=== PATIENT | male | born 1945 | race Caucasian/White ===

== ENCOUNTER 2016-10-06 09:54 | Day surgery (SDC) | payer OTHER, MEDICAID ==
[~2016-10-06] VITALS: Ht 172.7 cm; Wt 80.7 kg
[~2016-10-06 09:54] MED LIST: ASPIRIN 81M81 MG/TA2 PO; ASPIRIN E.C. 8181 MG PO; BENTYL 20MG20 MG/TAB PO; CALCIUM 600/VIT1 TAB PO; CALCIUM CITRATE1 TA5 PO; CELEXA PO; CELEXA40 MG PO; CITALOPRAM40 MG PO; CYCLOBENZAPRINE10 MG PO; DICYCLOMINE20 MG PO; FIBER CHOICE1 CTB PO; FLEXERIL 1010 MG/TAB PO; FOSAMAX 70MG TA70 MG PO; LEVOXYL0.025 MG PO; MIRTAZAPINE45 MG PO; ONE-A-DAY MEN'S1 TAB PO; PLAVIX 75MG TAB75 MG PO; PRIL40 PO; PROTONIX 40MG T40 MG PO; REMERON15 MG PO; REMERON45 MG PO; VITAMIN B-650 MG PO; VITAMIN D1000 IU PO; ZYRTEC 10MG10 MG PO
[2016-10-06 10:45] VITALS: BP 174/79; PULSE 83; TEMP 97.8
[2016-10-06] MEDS ORDERED: ZYRTEC 10MG10 MG PO (10:47)
[2016-10-06] MEDS ORDERED: SYNTHROID 0.0.025 MG PO (10:48)
[2016-10-06] MEDS ORDERED: ASPIRIN 81M81 MG/TA2 PO (10:48)
[2016-10-06] MEDS ORDERED: PLAVIX 75MG TAB75 MG PO (10:49)
[2016-10-06] MEDS ORDERED: CELEXA40 MG PO (10:52)
[2016-10-06] MEDS ORDERED: REMERON45 MG PO (10:53)
[2016-10-06] MEDS ORDERED: PROTONIX 40MG T40 MG PO (10:53)
[2016-10-06] MEDS ORDERED: PROSCAR 5MG5 MG PO (10:54)
[2016-10-06] MEDS ORDERED: REQUIP XL6 MG PO (10:54)
[2016-10-06] MEDS ORDERED: BENTYL 20MG20 MG/TAB PO (10:55)
[2016-10-06] MEDS ORDERED: MEVACOR10 MG PO (10:55)
[2016-10-06] MEDS ORDERED: ATARAX50 MG PO (10:56)
[2016-10-06] MEDS ORDERED: FLOMAX 0.40.4 MG/CAP PO (10:56)
[2016-10-06] MEDS ORDERED: CENTRUM SILVER1 TA2 PO (10:56)
[2016-10-06 12:45] VITALS: BP 153/75; PULSE 73; TEMP 98.1
[2016-10-06 13:00] VITALS: BP 154/72; PULSE 74
[2016-10-06 13:45] VITALS: BP 147/72; PULSE 73
== END 2016-10-06 13:20 | disposition home or self-care (01) ==
LOC: SDCO 09:54
DX: K21.0 Gastro-esophageal reflux disease with esophagitis (principal); K22.70 Barrett's esophagus without dysplasia; K22.2 Esophageal obstruction; J44.9 Chronic obstructive pulmonary disease, unspecified; F32.9 Major depressive disorder, single episode, unspecified; K58.9 Irritable bowel syndrome, unspecified; Z87.01 Personal history of pneumonia (recurrent); Z79.899 Other long term (current) drug therapy; Z79.82 Long term (current) use of aspirin; Z79.02 Long term (current) use of antithrombotics/antiplatelets
CPT/HCPCS: C1726; J2250; J3010; J7030

== ENCOUNTER 2019-01-31 00:24 | Inpatient (IN) | payer MEDICARE, MEDICAID ==
[~2019-01-31] VITALS: Ht 172.7 cm; Wt 73.1 kg
[~2019-01-31 00:24] MED LIST changes: +ATARAX50 MG PO; +CENTRUM SILVER1 TA2 PO; +FLOMAX 0.40.4 MG/CAP PO; +MEVACOR10 MG PO; +PROSCAR 5MG5 MG PO; +REQUIP2 MG PO; +SYNTHROID 0.0.025 MG PO
--- NOTE | 2019-01-31 01:00 | NUR ---
Patient has been admitted to the floor via EMS. He is alert and oriented. He is drowsy from medications given. Denies nausea. He is rating his pain at 5-6 on a 0-10 scale in his right hip. Explained to patient the plan for today. Watkins was placed at [place], urine output is yellow and clear. Patient does not like the watkins catheter. Oriented patient to room. Notified A Chelly JUNG that patient has arrived to the floor. No other changes at this time. Call light within reach.
[2019-01-31 01:07] VITALS: BP 157/66; PULSE 87; TEMP 98.8
[2019-01-31] MEDS ORDERED: CLARITIN 1010 MG/TAB PO (01:41)
[2019-01-31] MEDS ORDERED: LIPITOR 40MG TA40 MG PO (01:41)
[2019-01-31] MEDS ORDERED: FERROUS SU325 MG/TAB PO (01:42)
[2019-01-31] MEDS ORDERED: RT SPIRIVA18 MCG IH (01:43)
[2019-01-31] MEDS ORDERED: FLONASEALLERGY NS (01:45)
[2019-01-31] MEDS ORDERED: RYTARY1 CE3 PO (01:48)
[2019-01-31] MEDS ORDERED: ATHLETE'S FOOT1% TP (01:49)
[2019-01-31] MEDS ORDERED: FLOXIN OTIC DROP5 ML OT (01:52)
[2019-01-31] MEDS ORDERED: MIRALAX PA17 GM/Dose PO (01:53)
[2019-01-31 06:10] LABS: BASO % 0.2 % (0.0-2.0); EOS # 0.2 (0.0-0.7); EOS % 1.5 % (0-4.0); GRAN # 12.4 (1.4-6.5); GRAN % 86.9 % (42.2-75.2); HEMATOCRIT 44.1 % (42.0-52.0); HEMOGLOBIN 15.3 g/dl (13.5-18.0); LYMPH # 0.6 (1.2-3.4); LYMPH % 4.4 % (20.0-51.0); MEAN CELL VOLUME 93 fl (80.0-100.0); MEAN CORPUSCULAR HEMOGLOBIN 32 pg (27.0-31.0); MEAN CORPUSCULAR HGB CONC 35 g/dl (33.0-37.0); MONO # 0.9 (0.1-0.6); MONO % 6.4 % (1.7-9.3); PLATELET COUNT 246 K/mm3 (130-400); RED BLOOD COUNT 4.73 M/mm3 (4.20-5.60); REDCELL DISTRIBUTION WIDTH-CV 13.7 % (11.5-14.5)
[2019-01-31 06:18] LABS: PROTHROMBIN TIME 11.5 SECONDS (9.7-12.8)
[2019-01-31 06:26] LABS: ALBUMIN 3.8 gm/dL (3.5-5.0); BILIRUBIN,TOTAL 0.9 mg/dL (0.0-1.0); CALCIUM 8.5 mg/dL (8.4-10.2); CREATININE, serum 0.99 (0.66-1.25); MAGNESIUM 2.2 mg/dL (1.6-2.3); POTASSIUM 4.2 mmol/L (3.4-5.0); TOTAL PROTEIN 7.2 gm/dL (6.4-8.2)
--- NOTE | 2019-01-31 06:30 | NUR ---
Patient slept for a couple hours than woke up around 0300, norco and morphine given for pain. He is rating pain at 8 on a 0-10 scale. Gave morphine at this time to work before the norco starts working. Explained this to patient. Patient verbalized understanding. Explained how often he can have the pain medications. Home medication list completed. Discussed medications with patient. He took all his day/evening medications yesterday but did not take HS medications. Dr Castro notified of consult. Explained patient can not eat or drink until all tests finished. SCD's to BLE, NASIMA hose to LLE. No other changes at this time. Beatrice CAZARES is here to see patient from Ortho. Call light within reach. Bed alarm on just in case he forgets and tries to get up.
[2019-01-31 06:33] LABS: PRE ALBUMIN 21.5 mg/dL (17.6-36.0)
--- NOTE | 2019-01-31 06:40 | NUR ---
bedside shift report received from MILLY Yates
--- NOTE | 2019-01-31 07:29 | NUR ---
appears to be dozing but when awakens c/o pain to right hip, medicated with hydrocodone 7.5mg 1 tab, full assessment completed, see interventions for further info,
--- NOTE | 2019-01-31 09:00 | NUR ---
awake now resting in bed looking at his phone, assisted the JOB DEVELOPMENT SPECIALIST with am hygiene and repositioned up in bed, tolerated well,
[2019-01-31 09:10] VITALS: BP 131/58; PULSE 78; TEMP 98.6
--- NOTE | 2019-01-31 09:42 | NUR ---
to radiology per bed for CT of head and has now returned, Dr Guerrero in to see and visit with patient
--- NOTE | 2019-01-31 09:53 | NUR ---
hospitalist and care team in to see pateint
--- NOTE | 2019-01-31 11:00 | NUR ---
resting in bed with eyes closed
[2019-01-31 12:13] VITALS: BP 140/59; PULSE 73; TEMP 98.6
--- NOTE | 2019-01-31 13:15 | NUR ---
talked with him and he has not found someone to bring his home meds, will speak with pharmacy, also he understands the doctor of nurse anesthesia wants him to wait to do surgery until after more tests are done, assisted him with ordering lunch
--- NOTE | 2019-01-31 15:30 | NUR ---
family now here to visit, patient visits with them
--- NOTE | 2019-01-31 15:40 | NUR ---
ELO met with the patient and patient's daughter, Uma, to discuss discharge plan. The patient lives alone in [place]. He states that Uma lives in [place]. He reports independence with ADLs prior to hospitalization and has a walker. He states that he receives cleaning services twice a week from the [facility]. He states that a nurse from the [facility] also comes and sets up his meds and will even pick them up for him. The patient's PCP is Dr. Robosn Baeza and he receives his medications from [facility]. He reports no difficulties obtaining his meds. The patient does not have advanced directives in EMR, but states that he does have them completed and at home. He states that his PCP's office should have a copy too. SW contacted his PCP's office and requested a copy. His daughter, Uma, reports that she is his DPOA-HC. The patient's daughter reports that the plan is for the patient to come down to [place] with her and her upon discharge. The patient is to have surgery. PT/OT to work with the patient. ELO to continue to follow to ensure a safe discharge.
--- NOTE | 2019-01-31 16:07 | NUR ---
c/o pain and medicated with hydrocodone 7.5mg 1 tab
--- NOTE | 2019-01-31 16:14 | NUR ---
SW received the patient's DPOA-HC and Living Will, via fax. ELO placed in the patient's chart and provided a copy of both to the patient's daughter.
[2019-01-31 16:28] VITALS: BP 122/54; PULSE 73; TEMP 98.4
--- NOTE | 2019-01-31 16:50 | NUR ---
repositioned over to right side and tolerated well
--- NOTE | 2019-01-31 18:45 | NUR ---
bedside shift report given to MILLY Sweeney
--- NOTE | 2019-01-31 20:00 | NUR ---
Report received. Assumed care for shift mechanic. Assessment complete. VS stable. C/O pain to right hip area rating it 03/15-Morphine given IV per dr order. Repositioned with pillow support with hip alignment. Denies shortness of breath. Noted to have diminished lung bases as well as O2 Sat of 88% on 2L/NC. IS given with instruction on use. O2 Sat up to 94% on 2L/NC. Instruction given to use every hour. Verbalizes understanding. Denies needs at this time. WIll monitor.
[2019-01-31 21:10] VITALS: BP 152/65; PULSE 80; TEMP 98.5
[2019-01-31 23:07] VITALS: BP 148/62; PULSE 76; TEMP 99
--- NOTE | 2019-02-01 00:10 | NUR ---
Repositioned with pillow support to maintain correct alignment. Fresh ice applied. Teaching done on proper positioning of lower extremitites. Verbalizes understanding. Will monitor.
[2019-02-01 03:29] VITALS: BP 122/65; PULSE 77; TEMP 98.8
[2019-02-01 08:03] LABS: BASO % 0.2 % (0.0-2.0); EOS # 0.9 (0.0-0.7); EOS % 8.6 % (0-4.0); GRAN % 76.1 % (42.2-75.2); HEMATOCRIT 43.5 % (42.0-52.0); HEMOGLOBIN 14.6 g/dl (13.5-18.0); LYMPH # 0.8 (1.2-3.4); LYMPH % 7.7 % (20.0-51.0); MEAN CELL VOLUME 97 fl (80.0-100.0); MEAN CORPUSCULAR HEMOGLOBIN 32 pg (27.0-31.0); MEAN CORPUSCULAR HGB CONC 34 g/dl (33.0-37.0); MONO # 0.8 (0.1-0.6); MONO % 7.1 % (1.7-9.3); PLATELET COUNT 227 K/mm3 (130-400)
[2019-02-01 08:24] LABS: ALBUMIN 3.3 gm/dL (3.5-5.0); BILIRUBIN,TOTAL 0.7 mg/dL (0.0-1.0); CALCIUM 8.3 mg/dL (8.4-10.2); CREATININE, serum 0.97 (0.66-1.25); TOTAL PROTEIN 6.6 gm/dL (6.4-8.2)
[2019-02-01 08:33] VITALS: BP 119/45; PULSE 72; TEMP 98.6
[2019-02-01 12:38] VITALS: BP 123/56; PULSE 72; TEMP 99.1
--- NOTE | 2019-02-01 13:30 | NUR ---
Right hip pain improved with prn pain meds and repositioning. Ice pack to hip. Drowsy, alert. RT gave treatment for low O2 sats. Uses incentive spirometer to 1000 ml. Occasional non-productive cough. O2 on per oxymask. Hospitalist notified and chest x-ray ordered.
[2019-02-01 16:02] VITALS: BP 135/78; PULSE 87; TEMP 100.1
[2019-02-01 17:05] VITALS: TEMP 100
--- NOTE | 2019-02-01 18:30 | NUR ---
Low grade fever. Pain improved with prn meds. Drinking protein shake after encouragement from family. IV Lasix given and IV fluids stopped per order.
--- NOTE | 2019-02-01 20:00 | NUR ---
Report received. Assumed care for shift commander. Assessment complete. C/O pain to right hip requesting pain medications. IV pain meds available only as PO have already been taken. IV sit to left wrist noted to not [id number]-[id number] swelling. Dcd at this time-cath intact. #20 placed in right wrist after 2nd attempt. Flushed without difficulty. Morphine given per dr order. Has scooted self down to the end of the bed with not pillow support. Repositioned at this time-teaching complete on proper positioning. Much more comfortable now. Call light within reach. Bed in low position. Alarm on. WIll monitor.
[2019-02-01 20:43] VITALS: BP 130/50; PULSE 92; TEMP 99.5
[2019-02-02] VITALS (7 sets, daily range): BP systolic 119–146; BP diastolic 42–67; PULSE 76–95; TEMP 98.4–99.7
[2019-02-02 05:06] LABS: BASO % 0.2 % (0.0-2.0); EOS % 8.7 % (0-4.0); GRAN # 8.3 (1.4-6.5); GRAN % 74.1 % (42.2-75.2); HEMATOCRIT 41.7 % (42.0-52.0); HEMOGLOBIN 14.1 g/dl (13.5-18.0); LYMPH # 0.8 (1.2-3.4); LYMPH % 7.2 % (20.0-51.0); MEAN CELL VOLUME 95 fl (80.0-100.0); MEAN CORPUSCULAR HEMOGLOBIN 32 pg (27.0-31.0); MEAN CORPUSCULAR HGB CONC 34 g/dl (33.0-37.0); MEAN PLATELET VOLUME 8.7 fl (7.4-10.4); MONO # 1.1 (0.1-0.6); MONO % 9.4 % (1.7-9.3); PLATELET COUNT 210 K/mm3 (130-400); REDCELL DISTRIBUTION WIDTH-CV 13.9 % (11.5-14.5)
[2019-02-02 05:14] LABS: ALBUMIN 3.2 gm/dL (3.5-5.0); CALCIUM 8.2 mg/dL (8.4-10.2); CREATININE, serum 0.98 (0.66-1.25); TOTAL PROTEIN 6.4 gm/dL (6.4-8.2)
--- NOTE | 2019-02-02 09:50 | NUR ---
Medicated with Morphine for c/o right hip pain after repositioning. O2 on per nasal cannula. Took po meds with juice. Refused food.
--- NOTE | 2019-02-02 15:05 | NUR ---
Family request change of DC plan; ELO met with patient and son, and dtr in room. Patient reports that they would like to look for placement in [place] so the patient will be with family and possibly move in with the son. ELO presented patient with choice for and medicare.gov SNF-refferal list. DPOA signed on father's behalf. They chose [address], [facility] Ph: [phone] and . Faxed 2. Family [facility] [place] [address], [place] , Called and left message. No fax- number. Will need to send 02/03 3. [facility] [address] [facility] Phone Called and left message- no fax listed. Will need to send 02/03 awaiting screen from initial fax.
--- NOTE | 2019-02-02 18:00 | NUR ---
Fluids and food encouraged as tolerated. Uses incentive spirometer with instruction. Pain relieved with prn med.
--- NOTE | 2019-02-02 20:00 | NUR ---
Report received. Assumed care for journeyman molder. Assessment complete. VS stable. C/O pain to right hip-rated 7/10, described as sharp stabbing, medicated per dr oakley. Morris cath with clear yellow urine. Repositioned at this time with pillow support. Ice applied. Plan of care discussed. O2 at 5L via humidified nasal cannula. Denies shortness of breathe, N/V. States she is nervous for surgery tomorrow. Call light within reach. Bed in low with alarm on. Will monitor.
[2019-02-03] VITALS (207 sets, daily range): BP systolic 100–169; BP diastolic 45–88; PULSE 62–110; TEMP 98–98.8; O2SAT 92–100
--- NOTE | 2019-02-03 01:50 | NUR ---
Notified by telephone plant power operator of new onset A-Fib. Adamaris Spaulding APRN notified as well as Cardiopulmomary for EKG. ERICH Spaulding to see patient. No new orders at this time. Will continue to monitor.
[2019-02-03 07:13] LABS: BASO % 0.3 % (0.0-2.0); EOS # 0.9 (0.0-0.7); EOS % 8.9 % (0-4.0); GRAN # 7.9 (1.4-6.5); GRAN % 75.4 % (42.2-75.2); HEMATOCRIT 44.6 % (42.0-52.0); LYMPH # 0.7 (1.2-3.4); LYMPH % 6.6 % (20.0-51.0); MEAN CELL VOLUME 97 fl (80.0-100.0); MEAN CORPUSCULAR HEMOGLOBIN 33 pg (27.0-31.0); MEAN CORPUSCULAR HGB CONC 34 g/dl (33.0-37.0); MEAN PLATELET VOLUME 9.1 fl (7.4-10.4); MONO # 0.8 (0.1-0.6); MONO % 7.5 % (1.7-9.3); PLATELET COUNT 258 K/mm3 (130-400); RED BLOOD COUNT 4.61 M/mm3 (4.20-5.60); REDCELL DISTRIBUTION WIDTH-CV 13.9 % (11.5-14.5)
[2019-02-03 07:26] LABS: CALCIUM 8.4 mg/dL (8.4-10.2); CREATININE, serum 1.03 (0.66-1.25); POTASSIUM 3.7 mmol/L (3.4-5.0)
--- NOTE | 2019-02-03 07:40 | NUR ---
REPORT FROM MARTINE ATKINS.
--- NOTE | 2019-02-03 09:09 | NUR ---
PT TO [facility] THIS AM. FAMLIY AT BED SIDE. RT IN ADMINISTERING TX ORDERED. PO PAIN MEDS GIVEN FOR PAIN. PT TOLERATING WELL
--- NOTE | 2019-02-03 09:30 | NUR ---
ELO faxed referral to [facility]. P# f# ELO awaiting response.
--- NOTE | 2019-02-03 09:31 | NUR ---
ELO faxed referral to [facility] in [place]. p# f# ELO awaiting response.
[2019-02-03 12:03] LABS: PROTHROMBIN TIME 12.2 SECONDS (9.7-12.8)
--- NOTE | 2019-02-03 12:52 | NUR ---
IV STARTED TO LFA BY WANDY ATKINS.
--- NOTE | 2019-02-03 13:40 | NUR ---
PT TO HEAD OF HISTORY FOR HEART CATHETERIZATION. CONSENT SIGNED ON CHART.
--- NOTE | 2019-02-03 13:46 | NUR ---
Initial visit; Patient thanked Fence Post Driver for looking in on him and offering spiritual care. Fence Post Driver will change shinto affiliation so that Freeman may receive Holy Communion as he states he is Cheondoism.
--- NOTE | 2019-02-03 14:02 | NUR ---
ALL MEDICATIONS GIVEN VORB WITH MD. SEE MERGE FOR ALL MEDICATION ADMIN TIMES. SEE MERGE FOR ALL RASS ASSESSMENTS DURING AND POST PROCEDURE. RADIAL PULSE +2 IN THE RIGHT WRIST.
--- NOTE | 2019-02-03 15:27 | NUR ---
[facility] in [place] can accept the patient for a skilled stay. They can provide transport. Damaris is the POC . ELO will continue to follow.
--- NOTE | 2019-02-03 15:30 | NUR ---
Patient transported to ICU 7 at this time. Bedside report given to MILLY Thacker. Patient remains restless. Wrist immobilizer in place along with forearm/elbow immobilizer wrapped for stability with YANELY bandage, per MD orders. TR band in place with 20 ml of air in the band per MD orders. Visualized site with RN at bedside. Site remains intact, with old drainage present. Site soft, with no hematoma present at this time. Pulse was palpable, soft and nontender. Patient continues to be restless. This nurse and additional staff from director labor standards present to assist.
--- NOTE | 2019-02-03 15:39 | NUR ---
[facility] Danna Romero p# f#
--- NOTE | 2019-02-03 15:45 | NUR ---
Report received from MILLY Thacker. Pt remains restless/confused since left heart cath procedure. right wrist and elbow immobilizer in place. Rocco bandage around right arm. Right radial TR band in place. small amt drainage from incision site. Bruise present around incision site, area soft, no hematoma present. Radial pulse +1. Pt desat 80s, o2 increased to 10L/ oxymask. ERICH Ocampo with Dr Brody notified of pt status. Will come see pt now.
--- NOTE | 2019-02-03 15:48 | NUR ---
[facility] has accepted FILEMON Swann .
--- NOTE | 2019-02-03 15:55 | NUR ---
ERICH Ocampo with Dr Brody at bedside. Pt remains confused/agitated. Swinging arms around. Trying to pull off divina bandage on right arm. Bilat mitts placed on pt's hands. Attempted to reorient pt several times, unsuccesful. CXR and Ativan IV ordered. Pt remains on 10L/oxymask.
--- NOTE | 2019-02-03 15:59 | NUR ---
Sheldon faxed update to [facility]. ELO will continue to follow.
[2019-02-03 16:20] LABS: ARTERIAL BLD GAS O2 SATURATION 92.9 % (92-100); ARTERIAL BLD GAS TCO2 CT 30.2; ARTERIAL BLOOD GAS BASE EXCESS 3.5 (-2-2); ARTERIAL BLOOD GAS HCO3 28.8 meq/L (22-26); ARTERIAL BLOOD GAS PCO2 46.2 mmHg (35-45); ARTERIAL BLOOD GAS PO2 65.8 mmHg (80-100); ARTERIAL BLOOD GAS pH 7.41 (7.35-7.45)
--- NOTE | 2019-02-03 16:30 | NUR ---
IV lasix given. Pt resting in bed, occasionally restless. Right radial TR band on, small, old drainage noted from incision site. Right radial pulse +1.
--- NOTE | 2019-02-03 16:55 | NUR ---
Pt's dtr and son in law at bedside. Updated on pt status and plan of care r/t TR band on right wrist and pulmonary consult. Pt's dtr verbalized understanding. Pt occasionally restless. Still confused. HOB up at 30 degrees, on 4L/oxymask. Ice pack placed on right hip. Mitts still on hands.
--- NOTE | 2019-02-03 18:39 | NUR ---
Pt placed on Bipap by RT per Dr Corea's orders. Pt resting, opens eyes briefly to stimulation, tries to swing arms at nurse, then falls back asleep. VSS. Right wrist TR band on, dry drainage noted at incision site. NO hematoma present. Bruising still around incison site. Will monitor.
--- NOTE | 2019-02-03 19:20 | NUR ---
Report given to MILLY Rowland.
--- NOTE | 2019-02-03 19:20 | NUR ---
Bedside report received from MILLY Marroquin. Lines and medications reviewed. Transfer of care at this time.
--- NOTE | 2019-02-03 20:00 | NUR ---
Patient awake laying in bed on the BiPAP. Patient continually pulling at mitts and has successfully pulled them off twice. Mitts reapplied. Patient is not following commands or opening his eyes. Whenever he is touched he tries to swing his arm and hit whoever is close. Unable to reorient patient. Assessment complete. He has clear lung sounds with diminished bases with good air exchange. HR and rhythm are regular with normal S1 and S2 heard, patient does become tachycardic into the 110's when agitated. Bowel sounds active x4. Patient is unable to answer questions, unclear if he needs anything at this time. WIll continue to monitor. bed alarm on.
--- NOTE | 2019-02-03 22:15 | NUR ---
Entered patient room after seeing HR in the 140's at the tele desk. Upon entering the patient is asleep but visually you can see him using accessory muscles to breathe. Lung sounds are diminished in all marrufo with minimal air movement. Sarita RT called to come assist. MILLY Joyner assisted with repositioning patient in bed. Lungs are still diminished with poor air exchange, patient is also breathing against the BiPAP when he previously had been breathing with it. Confirmed with Sarita RT that patients lung sounds have changed and use of accessory muscles. 2223 - ERICH Bernabe called and notified of patient change. Orders for stat chest xray and ABG to be drawn. 2226 - Dr Corea notified. Agrees with stat ABG and xray, have Florecita assess the patient. 2228 - ERICH Bernabe arrives to assess. Xray arrives and takes film. Verbal orders for RT to give zopinex treatment. Order for 20mg lasix IV now and d/c duoneb treatments. Florecita updates Dr. Corea. 2238 - Patient's breathing has improved and is breathing with the BiPAP again, no longer using accessory muscles. Lungs still have poor exchange, but slight improvement with breathing treatment. Will continue to monitor closely.
[2019-02-03 22:34] LABS: ARTERIAL BLD GAS O2 SATURATION 97.9 % (92-100); ARTERIAL BLD GAS TCO2 CT 30.3; ARTERIAL BLOOD GAS BASE EXCESS 2.6 (-2-2); ARTERIAL BLOOD GAS HCO3 28.8 meq/L (22-26); ARTERIAL BLOOD GAS pH 7.38 (7.35-7.45)
[2019-02-03 22:37] LABS: ARTERIAL BLOOD GAS PO2 130.6 mmHg (80-100)
[2019-02-04] VITALS (1061 sets, daily range): BP systolic 95–154; BP diastolic 49–84; PULSE 69–110; TEMP 96–98.8; O2SAT 85–100
--- NOTE | 2019-02-04 | NUR ---
Patient remains stable with no further signs of respiratory distress. He is awake at this time and pulling at mitts. Patient still does not follow commands. Vitals obtained and remain stable. Patient is still tachycardic, but improves when he is resting. No further needs at this time. Will continue to monitor.
--- NOTE | 2019-02-04 04:50 | NUR ---
This nurse enters the room at this time due to alarming from the BiPAP machine. Upon entering patient does not look well and is pale, respirations are shallow and not in sync with the BiPAP. Patient's tidal volumes noted to be in the 100's. 0452 - Respiratory therapy called at this time emergently. Charge nurse, MILLY Joyner called as well. 0454 - Both respiratory therapists and the charge nurse arrive. Patient's O2 sats start dropping into the low 80's. Tidal volumes decreasing as low as 22. This nurse and RT Karen sternal rubbing and shaking patient with no response. After a minute of harsh stimulation patient finally coughs and starts taking deeper breaths and opening his eyes. 0502 - All parties remain at bedside. Patient's sats start dropping again into the high 80's. RT Karen begins changing settings on BiPAP. 0515 - Setting now changed to 16/8 with changes to Tidal volume alarms and pressures by MILLY Jones. 0520 - respiratory therapy leaves at this time. MILLY Joyner and this nurse remain at bedside as patient is starting to become more alert and restless. 0530 - Patient continues to be restless and pulling at mitts. Mitts removed and cath site rewrapped. All air from TR band has been removed. Patient begins to settle down after mitts removed. Lab arrives and this nurse assists with draw as patient is combative when moved or touched. after labs drawn patient falls asleep again and vitals remain stable with RR 20, O2 sats 100%, BP 140's systolic, HR 90's. 0536 - ERICH Bernabe called and notified at this time. Patient is back to baseline and is remaining stable. She will come down and see patient 0538 - Dr. Corea called at this time and notified of patient change. Order to call DPOA and get permission for mechanical ventilation.
[2019-02-04 05:42] LABS: HEMATOCRIT 45.8 % (42.0-52.0); HEMOGLOBIN 15.6 g/dl (13.5-18.0); MEAN CELL VOLUME 95 fl (80.0-100.0); MEAN CORPUSCULAR HEMOGLOBIN 32 pg (27.0-31.0); MEAN CORPUSCULAR HGB CONC 34 g/dl (33.0-37.0); MEAN PLATELET VOLUME 8.9 fl (7.4-10.4); PLATELET COUNT 273 K/mm3 (130-400); RED BLOOD COUNT 4.84 M/mm3 (4.20-5.60); REDCELL DISTRIBUTION WIDTH-CV 13.7 % (11.5-14.5)
--- NOTE | 2019-02-04 05:48 | NUR ---
Patient's daughter, Cynthia (DPOA), called and notified of patient change in respiratory status. Spoke with patient about Dr. Corea's recommendation for intubation and mechanical ventilation. Cynthia agrees to give consent for intubation and ventilation. This is confirmed by phone by this nurse and MILLY Joyner. Cynthia has no further questions at this time. Will notify if any changes.
[2019-02-04 05:57] LABS: CALCIUM 8.8 mg/dL (8.4-10.2); CREATININE, serum 1.19 (0.66-1.25); MAGNESIUM 2.6 mg/dL (1.6-2.3)
[2019-02-04 06:19] LABS: BAND 19 % (0-10); LYMPHOCYTE 3 % (20.0-51.0); NEUTROPHILS 78 % (42.0-75.2)
[2019-02-04 06:20] LABS: PLATELET ESTIMATE NORMAL (NORMAL)
--- NOTE | 2019-02-04 06:20 | NUR ---
This nurse and MILLY Joyner prep patient room for patient to be intubated. Suction canisters set up with tubing, Intubation case and rapid sedation kit pulled and ready. Patience, RT at bedside with secondary RT. 0630 - Anesthesia arrives and preps his equipment. 0635 - intubation started at this time. Patient's Vitals are stable - BP 134/84, O2 100%, RR 18, HR 77. Propofol 40mg and Succ 60mg given at this time by anesthesia. 0637 - Patient is bagged and reaching up for the mask. Restraints applied at this time. 0638 - ET tube placed at this time. 8.0 tube, 24 at the gum. 0640 - Intubation complete. Vitals stable - BP 156/81, RR 19, O2 100%, HR 103. Anesthesia leaves at this time. All suction tubing attached and working. Patience, RT and secondary RT at bedside working on ventilator settings. 0643 - Dr. Corea called at this time for sedation and ventilator settings. Orders received for Propofol and Fentanyl, chest xray for placement, Ventilator orders given to Patience, RT. (RR 15, TV 450, Peep 5, FIO2 60%)
--- NOTE | 2019-02-04 06:45 | NUR ---
Nitro drip stopped at this time due to lack of lines and sedation needing to be started. Will have new line started.
--- NOTE | 2019-02-04 07:00 | NUR ---
Bedside report received from MILLY Rowland.
--- NOTE | 2019-02-04 07:18 | NUR ---
Bedside report given to MILLY May.
--- NOTE | 2019-02-04 07:37 | NUR ---
Cynthia, daughter and DPOA, called and notified that patient has been intubated. He is currently stable with all vitals WNL. Dr. Corea will see the patient when he arrives, but intubation happened without incident. He is sedated and resting comfortably. No further questions at this time. Will continue to notify if any changes. Cynthia says that they are on their was to the hospital.
--- NOTE | 2019-02-04 07:55 | NUR ---
AIVS here to place picc line.
--- NOTE | 2019-02-04 08:00 | NUR ---
Patient repositioned, right leg noted to be externally rotated.
--- NOTE | 2019-02-04 08:10 | NUR ---
TR band removed, band-aid placed over site.
--- NOTE | 2019-02-04 08:15 | NUR ---
Assessment complete, patient intubated, AM care complete, patient appears resting comfortably at this time.
[2019-02-04 10:01] LABS: ARTERIAL BLD GAS O2 SATURATION 98.5 % (92-100); ARTERIAL BLD GAS TCO2 CT 27.8; ARTERIAL BLOOD GAS HCO3 26.6 meq/L (22-26); ARTERIAL BLOOD GAS PCO2 41.4 mmHg (35-45); ARTERIAL BLOOD GAS pH 7.43 (7.35-7.45)
[2019-02-04 10:03] LABS: ARTERIAL BLOOD GAS PO2 150.9 mmHg (80-100)
--- NOTE | 2019-02-04 10:15 | NUR ---
Dr. Guerrero called for update, may given Lovenox today, hold in AM for potential surgery.
--- NOTE | 2019-02-04 11:20 | NUR ---
SW attended clincal rounds. Patient's family was present. Patient was intubated this morning and Doctor reports that patient will likely need to stay intubated and in the ICU after surgery. Patient will possibly have surgery tomorrow. Patient has been [facility] by two [facility] in [place] ([facility] and [facility] SW will continue to follow.
--- NOTE | 2019-02-04 16:27 | NUR ---
Patient repositioned for comfort.
--- NOTE | 2019-02-04 17:40 | NUR ---
FIO2 DECREASED TO 40% PER DR CH POST ABG. RATE REDUCED FROM [address].
--- NOTE | 2019-02-04 18:59 | NUR ---
Bedside report given to MILLY Johnson, all lines,gtts and tubes verified at this time.
--- NOTE | 2019-02-04 19:37 | NUR ---
RECEIVED REPORT FROM MILLY MUÑIZ.
[2019-02-05] VITALS (885 sets, daily range): BP systolic 93–157; BP diastolic 50–76; PULSE 49–80; TEMP 97.1–98; O2SAT 77–100
[2019-02-05 05:46] LABS: HEMATOCRIT 43.2 % (42.0-52.0); HEMOGLOBIN 14.6 g/dl (13.5-18.0); MEAN CELL VOLUME 95 fl (80.0-100.0); MEAN CORPUSCULAR HEMOGLOBIN 32 pg (27.0-31.0); MEAN CORPUSCULAR HGB CONC 34 g/dl (33.0-37.0); PLATELET COUNT 295 K/mm3 (130-400); RED BLOOD COUNT 4.54 M/mm3 (4.20-5.60); REDCELL DISTRIBUTION WIDTH-CV 13.7 % (11.5-14.5)
--- NOTE | 2019-02-05 05:56 | NUR ---
DID NOT PERFORM AT THIS TIME. PATIENT IS ALREADY STARTING TO WAKE UP AND REACHING FOR TUBES AND LINES. WILL CONTINUE TO MONITOR PATIENT.
[2019-02-05 06:04] LABS: CALCIUM 8.8 mg/dL (8.4-10.2); MAGNESIUM 3.2 mg/dL (1.6-2.3); PHOSPHOROUS 4.1 mg/dL (2.5-4.5); POTASSIUM 4.2 mmol/L (3.4-5.0)
[2019-02-05 06:13] LABS: BAND 19 % (0-10); LYMPHOCYTE 4 % (20.0-51.0); NEUTROPHILS 77 % (42.0-75.2); PLATELET ESTIMATE NORMAL (NORMAL)
--- NOTE | 2019-02-05 07:02 | NUR ---
gave report to gopal lopez.
--- NOTE | 2019-02-05 07:03 | NUR ---
Bedside report received from MILLY Johnson.
--- NOTE | 2019-02-05 07:40 | NUR ---
Assessment complete, patient remains intubated, AM care complete at this time.
[2019-02-05 08:29] LABS: ARTERIAL BLD GAS O2 SATURATION 94.1 % (92-100); ARTERIAL BLD GAS TCO2 CT 29.4; ARTERIAL BLOOD GAS BASE EXCESS 3.9 (-2-2); ARTERIAL BLOOD GAS HCO3 28.1 meq/L (22-26); ARTERIAL BLOOD GAS PCO2 40.9 mmHg (35-45); ARTERIAL BLOOD GAS pH 7.46 (7.35-7.45)
--- NOTE | 2019-02-05 11:17 | NUR ---
SW met with patient's daughter and son in law. They inquired if SW has spoken [facility] [place] about transportation costs. SW reported she will contact Danna from [facility]. SW attempted to contact Danna and left a message.
--- NOTE | 2019-02-05 11:42 | NUR ---
First visit from the environmental services lead. No needs right now.
[2019-02-05 16:21] LABS: MUCOUS Present /lpf; PH 5 (5-8); SQUAMOUS EPITHELIAL 0-2 /hpf; URINE APPEARANCE Hazy; URINE BACTERIA None Seen /hpf; URINE BILIRUBIN Negative (NEGATIVE); URINE BLOOD 3+ (NEGATIVE); URINE CALCIUM OXALATE CRYSTAL Present /hpf; URINE COLOR Yellow; URINE GLUCOSE Negative (NEGATIVE); URINE KETONE Negative (NEGATIVE); URINE LEUKOCYTE ESTERASE Negative (NEGATIVE); URINE NITRATE Negative (NEGATIVE); URINE PROTEIN(semi-quant) Negative (NEGATIVE); URINE RBC 20-50 /hpf; URINE UROBILINOGEN Negative (NEGATIVE)
[2019-02-05 16:31] LABS: COLLECTION METHOD CLEAN CATCH
--- NOTE | 2019-02-05 19:02 | NUR ---
Bedside report given to MILLY Rowland, all lines, tubes and gtts verified at this time.
--- NOTE | 2019-02-05 19:05 | NUR ---
Bedside report received from MILLY May. All lines and medications viewed. Transfer of care at this time.
--- NOTE | 2019-02-05 20:00 | NUR ---
Patient resting quietly on the ventilator. No signs of pain or distress. Assessment complete. Patients lungs are clear with diminished bases. HR and rhythm regular with normal S1 and S2 heard. Bowel sounds active x4. Patient does not follow commands, but opens eyes to speech. He does not track movement. Pupil reaction is sluggish. ET tube and OG tube placement siegel confirmed. Patient has no further needs at this time. Will continue to monitor. Call light within reach.
--- NOTE | 2019-02-05 20:55 | NUR ---
Patient starting to get restless and agitated at this time. He is sitting up on the vent and pulling hard at the restraints. He is pulling hard on his gown and pulling off cords in the process. Will titrate propofol and fentanyl as needed. Patient is also found to be soaked in urine despite catheter in place and draining. Patient given a bed bath and linens changed. Patient repositioned and catheter begins draining better. Restraints retightened. No further needs.
[2019-02-06] VITALS (1256 sets, daily range): BP systolic 109–134; BP diastolic 52–62; PULSE 48–82; TEMP 97.4–97.6; O2SAT 82–100
--- NOTE | 2019-02-06 | NUR ---
Patient asleep on the vent at this time, no signs of pain or distress. Assessment complete. No changes from previous exam. Patient is starting to have slightly more thick sputum than he had been previous in the shift. His residuals from his OG tube are increased after the rate was turned up to 30ml at 2200. Patient repositioned for comfort. No further needs at this time. Will continue to monitor. Call light within reach.
--- NOTE | 2019-02-06 03:30 | NUR ---
RN ALTERNATING WITH ORAL CARE
--- NOTE | 2019-02-06 04:00 | NUR ---
Assessment complete. Patient resting on the vent, no signs of pain or distress. No changes from previous exam. Vitals remained stable. No further needs at this time. Will continue to monitor.
--- NOTE | 2019-02-06 05:00 | NUR ---
Patient awake and sitting up on the vent at this time. He is pulling at the restraints and trying to grab the ET tube and anything he can reach. He is not following commands. Sedation vacation will not be attempted due to patient already being awake and agitated.
[2019-02-06 05:14] LABS: ARTERIAL BLD GAS O2 SATURATION 93.6 % (92-100); ARTERIAL BLD GAS TCO2 CT 29.7; ARTERIAL BLOOD GAS BASE EXCESS 3.6 (-2-2); ARTERIAL BLOOD GAS HCO3 28.4 meq/L (22-26); ARTERIAL BLOOD GAS PCO2 43.1 mmHg (35-45); ARTERIAL BLOOD GAS PO2 72.3 mmHg (80-100); ARTERIAL BLOOD GAS pH 7.44 (7.35-7.45)
--- NOTE | 2019-02-06 05:31 | NUR ---
PT SCHEDULED FOR OR ON 02/07/19 HOLD WEAN UNTIL SURGERY COMPLETE
[2019-02-06 05:53] LABS: HEMATOCRIT 42.8 % (42.0-52.0); HEMOGLOBIN 14.2 g/dl (13.5-18.0); MEAN CELL VOLUME 97 fl (80.0-100.0); MEAN CORPUSCULAR HEMOGLOBIN 32 pg (27.0-31.0); MEAN CORPUSCULAR HGB CONC 33 g/dl (33.0-37.0); PLATELET COUNT 300 K/mm3 (130-400); RED BLOOD COUNT 4.43 M/mm3 (4.20-5.60); REDCELL DISTRIBUTION WIDTH-CV 13.9 % (11.5-14.5)
[2019-02-06 06:05] LABS: CALCIUM 8.4 mg/dL (8.4-10.2); CREATININE, serum 0.92 (0.66-1.25); MAGNESIUM 3.2 mg/dL (1.6-2.3); PHOSPHOROUS 3.5 mg/dL (2.5-4.5); POTASSIUM 4.1 mmol/L (3.4-5.0)
[2019-02-06 06:21] LABS: BAND 6 % (0-10); LYMPHOCYTE 3 % (20.0-51.0); NEUTROPHILS 89 % (42.0-75.2); PLATELET ESTIMATE NORMAL (NORMAL)
--- NOTE | 2019-02-06 07:25 | NUR ---
Report received from Janett ATKINS and care resumed.
--- NOTE | 2019-02-06 07:26 | NUR ---
Bedside report given to MILLY Vazquez. All lines and medications reviewed. Transfer of care.
--- NOTE | 2019-02-06 17:00 | NUR ---
Pt easily waking on current sedation level and within limits. No plans for cpap or extubation as pt is scheduled for OR tomorrow.
[2019-02-07] VITALS (1169 sets, daily range): BP systolic 111–147; BP diastolic 55–79; PULSE 59–87; TEMP 97.5–98.1; O2SAT 86–100
--- NOTE | 2019-02-07 00:20 | NUR ---
pt's tube feeding on hold per order.
[2019-02-07 05:29] LABS: HEMATOCRIT 40.5 % (42.0-52.0); HEMOGLOBIN 13.6 g/dl (13.5-18.0); MEAN CELL VOLUME 97 fl (80.0-100.0); MEAN CORPUSCULAR HEMOGLOBIN 33 pg (27.0-31.0); MEAN CORPUSCULAR HGB CONC 34 g/dl (33.0-37.0); MEAN PLATELET VOLUME 8.9 fl (7.4-10.4); PLATELET COUNT 294 K/mm3 (130-400); RED BLOOD COUNT 4.16 M/mm3 (4.20-5.60); REDCELL DISTRIBUTION WIDTH-CV 14.3 % (11.5-14.5)
[2019-02-07 05:35] LABS: ARTERIAL BLD GAS O2 SATURATION 92.1 % (92-100); ARTERIAL BLOOD GAS BASE EXCESS 1.8 (-2-2); ARTERIAL BLOOD GAS HCO3 26.7 meq/L (22-26); ARTERIAL BLOOD GAS PCO2 42.7 mmHg (35-45); ARTERIAL BLOOD GAS PO2 68.2 mmHg (80-100); ARTERIAL BLOOD GAS pH 7.41 (7.35-7.45)
--- NOTE | 2019-02-07 05:38 | NUR ---
PT GOING INTO SURGERY THEREFORE NO WEANING TRIAL TO BE PERFORMED PT WILL NEED TO BE INTUBATED FOR SURGERY TO FIX HIP.
[2019-02-07 05:39] LABS: CALCIUM 7.9 mg/dL (8.4-10.2); CREATININE, serum 0.73 (0.66-1.25); MAGNESIUM 2.9 mg/dL (1.6-2.3); PHOSPHOROUS 3.4 mg/dL (2.5-4.5); POTASSIUM 4.7 mmol/L (3.4-5.0)
[2019-02-07 05:51] LABS: BAND 11 % (0-10); LYMPHOCYTE 3 % (20.0-51.0); METAMYELOCYTE 2 % (0-0); NEUTROPHILS 79 % (42.0-75.2); PLATELET ESTIMATE NORMAL (NORMAL)
--- NOTE | 2019-02-07 07:20 | NUR ---
BEDSIDE REPORT RECEIVED FROM MILLY JAMES. LINES, TUBES, IV GTTS REVIEWED. VENT SETTINGS REVIEWED.
--- NOTE | 2019-02-07 10:30 | NUR ---
PATIENT TO OR AT THIS TIME.
--- NOTE | 2019-02-07 11:00 | NUR ---
PATIENT MOVED FOR SURGERY VENT CHECK NOT PERFORMED AT THIS TIME.
--- NOTE | 2019-02-07 13:17 | NUR ---
PT RETURNED FROM OR. PLACED O PREVISOUS SETTINGS WITH INCREASE OF FI02 FPOM 30% TO 40% TO MAINTAIN SPO2 >92%.
--- NOTE | 2019-02-07 13:30 | NUR ---
PATIENT RETURNS FROM OR AT THIS TIME. HE REMAINS INTUBATED AND SEDATED. PREVIOUS SEDATION RESUMED AT THIS TIME. RIGHT HIP HAS DRESSING WITH FOAM TAPE IN PLACE. CLEAR SIGHT CUFF ON RIGHT HAND. PATIENT PLACED ON PREVIOUS VENT SETTINGS BY PHIL BLANTON. VS WNL. WILLL CONTINUE TO MONITOR
--- NOTE | 2019-02-07 14:00 | NUR ---
FAMILY IN THE ROOM AT THIS TIME. UPDATE GIVEN. PLAN OF CARE DISCUSSED.
--- NOTE | 2019-02-07 17:30 | NUR ---
PATIENT CONTINUES TO DO WELL. CLEAR SIGHT IN PLACE AND HEMODYNAMICS REMAINS THE SAME. GOOD OUTPUT VIA HILLS CATHETER. RIGHT HIP DRESSING CLEAN, DRY, AND INTACT. WILL CONTINUE TO MONITOR.
--- NOTE | 2019-02-07 19:25 | NUR ---
Report given to MILLY Zelaya. Patient turned and cleaned up at this time. IV lines, tubes, drips, vent settings reviewed. Care turned over at this time.
[2019-02-08] VITALS (1220 sets, daily range): BP systolic 121–145; BP diastolic 68–80; PULSE 75–108; TEMP 97.6–98.7; O2SAT 82–100
[2019-02-08 05:05] LABS: BASO % 0.1 % (0.0-2.0); GRAN # 12.9 (1.4-6.5); GRAN % 86.6 % (42.2-75.2); HEMOGLOBIN 12.9 g/dl (13.5-18.0); LYMPH # 0.5 (1.2-3.4); LYMPH % 3.3 % (20.0-51.0); MEAN CELL VOLUME 99 fl (80.0-100.0); MEAN CORPUSCULAR HEMOGLOBIN 33 pg (27.0-31.0); MEAN CORPUSCULAR HGB CONC 33 g/dl (33.0-37.0); MEAN PLATELET VOLUME 8.9 fl (7.4-10.4); MONO # 1.2 (0.1-0.6); MONO % 7.8 % (1.7-9.3); PLATELET COUNT 284 K/mm3 (130-400); RED BLOOD COUNT 3.96 M/mm3 (4.20-5.60); REDCELL DISTRIBUTION WIDTH-CV 14.6 % (11.5-14.5)
[2019-02-08 05:14] LABS: CALCIUM 7.7 mg/dL (8.4-10.2); CREATININE, serum 0.8 (0.66-1.25); POTASSIUM 4.7 mmol/L (3.4-5.0)
[2019-02-08 05:54] LABS: ARTERIAL BLD GAS TCO2 CT 29.5; ARTERIAL BLOOD GAS BASE EXCESS 2.6 (-2-2); ARTERIAL BLOOD GAS PCO2 46.4 mmHg (35-45); ARTERIAL BLOOD GAS PO2 86.8 mmHg (80-100)
--- NOTE | 2019-02-08 06:18 | NUR ---
PT ON SPONTANEOUS BREATHING TRIAL DOING WELL AND TOLERATING WELL
--- NOTE | 2019-02-08 07:15 | NUR ---
Bedside shift report received from MILLY Zelaya. Patient is sedated and remains on the ventilator at this time. Respiratory therapy at bedside to complete their care and perform their assessment. RN full assessment completed at this time as well. Respiratory states that patient was able to follow command by squeezing RT hand, but upon injury/safety hazard assessment patient did not follow command. All invasive lines assessed and secured. Patient does not appear to be in any distress, vital signs are stable, call light within reach, side rails up x3.
--- NOTE | 2019-02-08 07:44 | NUR ---
Patient remains on ventilator. Unable to complete bowel regimen order of hot water and prunes at this time.
--- NOTE | 2019-02-08 09:15 | NUR ---
Dr. Corea calls to see how patient is doing. states he is on his way and would like his fentanyl turned down to 25mcg/hr and propofol turned down to 10mcg/kg/min. Refer to titration documentation.
--- NOTE | 2019-02-08 09:35 | NUR ---
Dr. Corea called back and gave orders to turn sedation completely off for possible extubation when he arrives at bedside. Refer to titration documentation.
[2019-02-08 09:43] LABS: ARTERIAL BLD GAS O2 SATURATION 96.5 % (92-100); ARTERIAL BLD GAS TCO2 CT 27.6; ARTERIAL BLOOD GAS BASE EXCESS 1.7 (-2-2); ARTERIAL BLOOD GAS HCO3 26.3 meq/L (22-26); ARTERIAL BLOOD GAS PCO2 41.5 mmHg (35-45); ARTERIAL BLOOD GAS PO2 91.8 mmHg (80-100); ARTERIAL BLOOD GAS pH 7.42 (7.35-7.45)
--- NOTE | 2019-02-08 10:02 | NUR ---
Patient extubated per Dr. Corea's order by 2 RTs with no complications. Patient extubated to 5L Oxymask. Patient remains confused at this time and voice is hoarse. Patient educated on current health status and reoriented to person, place, time, and situation. Patient needs frequent reorientation. Patient's family members return to bedside post extubation and do not have any questions or complaints at this time.
--- NOTE | 2019-02-08 10:02 | NUR ---
AFTER MORNING CPAP TRIAL OF 5/[address] CH, PT EXTUBATED AT THIS TIME, ORAL AND ET SUCTION CONDUCTED, PT PLACED OF 5LPM OXYMASK. SPO2 93, HR 100, RR 16. NO DISTRESS NOTED.
--- NOTE | 2019-02-08 11:15 | NUR ---
Patient remains agitated and attempts to pick at lines and monitoring equipment. Dr. Corea notified and mitts applied to patient at this time. Family members educated on need for mitts. Family has no questions or concerns at this time.
--- NOTE | 2019-02-08 12:00 | NUR ---
Patient remains extubated and tolerating oxymask well, vital signs are stable. Patient remains confused, even with family at bedside. Patient is very agitated and continued to pull on all lines. Mittens are continued at this time.
--- NOTE | 2019-02-08 16:10 | NUR ---
Patient remains slightly confused, but is less agitated now and more receptive to care. Patient is currently lying in bed watching a movie with no complaints or concerns at this time. Call light within reach. Bed in lowest position. Side rails up x3. Vital signs are stable at this time.
--- NOTE | 2019-02-08 19:07 | NUR ---
Bedside shift report given to MILLY Zelaya. Patient is awake, alert, and slightly confused. Patient has no complaints or concerns at this time. Vital signs remain stable and the patient is in no apparent distress at this time. Call light is within reach. Bed in lowest position. Side rails up x3.
[2019-02-09] VITALS (585 sets, daily range): BP systolic 120–143; BP diastolic 58–76; PULSE 78–105; TEMP 97.9–98.2; O2SAT 89–100
[2019-02-09 05:34] LABS: HEMATOCRIT 41.2 % (42.0-52.0); HEMOGLOBIN 13.7 g/dl (13.5-18.0); MEAN CELL VOLUME 97 fl (80.0-100.0); MEAN CORPUSCULAR HEMOGLOBIN 32 pg (27.0-31.0); MEAN CORPUSCULAR HGB CONC 33 g/dl (33.0-37.0); MEAN PLATELET VOLUME 8.9 fl (7.4-10.4); PLATELET COUNT 326 K/mm3 (130-400); RED BLOOD COUNT 4.26 M/mm3 (4.20-5.60); REDCELL DISTRIBUTION WIDTH-CV 14.6 % (11.5-14.5)
[2019-02-09 05:44] LABS: BAND 5 % (0-10); LYMPHOCYTE 7 % (20.0-51.0); NEUTROPHILS 85 % (42.0-75.2); PLATELET ESTIMATE NORMAL (NORMAL)
[2019-02-09 05:49] LABS: CALCIUM 8.2 mg/dL (8.4-10.2); CREATININE, serum 0.86 (0.66-1.25); POTASSIUM 4.7 mmol/L (3.4-5.0)
--- NOTE | 2019-02-09 14:17 | NUR ---
REPORT GIVEN TO MILLY MOODY ON SURGICAL UNIT.
--- NOTE | 2019-02-09 18:11 | NUR ---
REPORT WAS RECIEVED FROM ICU, THE PT WAS TRANSFERRRED VIA BED TO HIS ROOM, 348, HIS SON IN LAW AND DAUGHTER WERE VISITING, THEY CAME TO THE NURSES STATION TO SAY THAT THEY WERE NEEDING TO RETURN TO [facility] THEY HAVE WORK TOMORROW AND THE PLAN IS TO HAVE THE PT TRANSFER TO "[facility]" IN [place] ON SUNDAY. THE PT IS ORIENTED TO SELF, CONFUSED AND REQUESTED THE BED BADILLO 6X IN 1 HR, BUT DIDN'T DEFICATE. REMINDED REPEATEDLY THAT HE HAS A HILLS CATHETER IN PLACE HE STATS THAT HE "NEEDS TO PEE". PASSIVELY FED 40% OF HIS SUPPER, THEN HE SAID THAT HE WAS "FULL"
--- NOTE | 2019-02-09 18:40 | NUR ---
BEDRESTING, STATED THAT HE IS READY TO SLEEP.
--- NOTE | 2019-02-09 20:00 | NUR ---
Patient in bed, is alert to self. Has antibiotic infusing to right PICC without redness or swelling. Has large bulky drsg to right hip, D/I. Is wearing SCD's bilaterally. Repositioned by staff at this time.
--- NOTE | 2019-02-09 22:04 | NUR ---
Patient awake, takes HS meds including [place] for pain to right hip. Swallows well without choking. Morris cath care provided. Antibiotic complete and line flushed.
[2019-02-10 00:13] VITALS: BP 143/54; PULSE 77; TEMP 98.1
--- NOTE | 2019-02-10 03:10 | NUR ---
Patient calling out for help. Reports pain to right hip. Medicated with Pollock 5/325 po at this time. Repositioned to left side, ice pack in place to right hip.
[2019-02-10 04:21] VITALS: BP 146/58; PULSE 75; TEMP 97.7
--- NOTE | 2019-02-10 06:00 | NUR ---
Patient asking to call his daughter. Advised she will call him on her break from work. He verbalized understanding.
[2019-02-10 06:13] LABS: HEMATOCRIT 41.5 % (42.0-52.0); HEMOGLOBIN 13.7 g/dl (13.5-18.0); MEAN CELL VOLUME 96 fl (80.0-100.0); MEAN CORPUSCULAR HEMOGLOBIN 32 pg (27.0-31.0); MEAN CORPUSCULAR HGB CONC 33 g/dl (33.0-37.0); PLATELET COUNT 334 K/mm3 (130-400); RED BLOOD COUNT 4.32 M/mm3 (4.20-5.60); REDCELL DISTRIBUTION WIDTH-CV 14.4 % (11.5-14.5)
[2019-02-10 06:23] LABS: ALBUMIN 3.2 gm/dL (3.5-5.0); BILIRUBIN,TOTAL 0.9 mg/dL (0.0-1.0); CALCIUM 8.8 mg/dL (8.4-10.2); CREATININE, serum 0.93 (0.66-1.25); MAGNESIUM 2.6 mg/dL (1.6-2.3); PHOSPHOROUS 4.1 mg/dL (2.5-4.5); POTASSIUM 4.8 mmol/L (3.4-5.0); TOTAL PROTEIN 6.4 gm/dL (6.4-8.2)
[2019-02-10 06:29] LABS: PRE ALBUMIN 28.2 mg/dL (17.6-36.0)
[2019-02-10 08:39] VITALS: BP 145/62; PULSE 79; TEMP 98.8
[2019-02-10 08:46] LABS: BAND 4 % (0-10); EOSINOPHIL 1 % (0-4); LYMPHOCYTE 7 % (20.0-51.0); NEUTROPHILS 82 % (42.0-75.2); PLATELET ESTIMATE NORMAL (NORMAL)
--- NOTE | 2019-02-10 10:30 | NUR ---
Patient has been very upset this morning. He is worried about going to [place]. Explained that it is for rehab and that his daughter will be close to help if he needs. He became tearful and saying he is so emotional and does not want to move. Discussed this with the Bobbi, from mental health social worker. She is going discuss the plan with family and the patient. Patient is oriented to place, self and date. He is very confused though about the discharge situation. He is also forgetful about things like having to sit up in the chair and why he can't eat at this time. No other changes at this time. Call light within reach. Chair/bed alarms turned on.
--- NOTE | 2019-02-10 11:12 | NUR ---
First visit from the geography department chair. No needs right now.
[2019-02-10 11:15] VITALS: BP 117/57; PULSE 87; TEMP 98.7
--- NOTE | 2019-02-10 13:22 | NUR ---
ELO was contacted by Damaris at [facility] in [place]. She would like an update faxed to [phone]. SHe reports that the family has been contacted and informed of the transportation cost and that [facility] will do transportation they just would like to know the day prior if possible. ELO faxed update.
--- NOTE | 2019-02-10 13:55 | NUR ---
ELO met with patient to discuss discharge planning. He reports he doesn't want to dc to [place] and that his daughter went into his home and took his stuff out. He is also worried that she ended his lease. ELO talked with patient about what he would like to do and he would like to go to skilled at [facility] or [facility]. SW called patients daughter who reports that they only took clothing from patients house so he would have things to wear in [place] and that she is confused because up till this point he was wanting to go to [facility]. She understands that if he is capable that we have to follow his wishes. SW requested psych eval to determine patients capacity. Will send referrals to [facility] and [facility].
--- NOTE | 2019-02-10 14:15 | NUR ---
Patient is heading down for his EGD at this time. He understood what he is having done. He had this procedure in the past. He continues to be worried about going to stay in [place]. Explained several times that if it is not what he wants to do than he needs to let everyone know now. No other changes at this time. Consent signed and on the chart.
--- NOTE | 2019-02-10 15:45 | NUR ---
Dressing to right hip has been changed to aquacel, steri-strips intact to incsion. Dried dark red drainage to old dressing. Encouraged patient to do deep breathing exercises. Patient has finally agreed to go to [place] and is no longer confused about the situation. He is confused at this time. He just got back from his EGD. Discussed with hospitalist about patients being able to eat or drink. He will be NPO until he works with Speech Therapy tomorrow. Patient denies nausea or pain at this time. He has stated that he is having burning in this throat from the EGD. No other changes at this time. Call light within reach. Bed alarm on.
--- NOTE | 2019-02-10 20:00 | NUR ---
Report received. Assumed care for shift leader. Assessment complete. VS stable. Requesting PO intake-instructed on NPO status until speech therapy arrives. Did give a small amount of water to moisten mouth with swabs. Has periods of arioynqny-kq-uexksvd self. Denies pain. Right hip with aquacell dressing-C/D/I. Plan of care discussed for this shift. Daughter called and updated as well. Denies needs. Will monitor.
[2019-02-10 20:24] VITALS: BP 139/70; PULSE 88; TEMP 98.7
[2019-02-10 23:04] VITALS: BP 120/60; PULSE 95; TEMP 99
[2019-02-11 03:00] VITALS: BP 136/58; PULSE 96; TEMP 98.7
--- NOTE | 2019-02-11 04:00 | NUR ---
Has been up most of night. Some periods of confusion. Remained NPO due to not tolerating gjxslu-eabolm-uszudj therapy to come today. Flustered with NPO status. Denies needs.
[2019-02-11 06:39] LABS: HEMATOCRIT 43.2 % (42.0-52.0); HEMOGLOBIN 14.5 g/dl (13.5-18.0); MEAN CELL VOLUME 96 fl (80.0-100.0); MEAN CORPUSCULAR HEMOGLOBIN 32 pg (27.0-31.0); MEAN CORPUSCULAR HGB CONC 34 g/dl (33.0-37.0); MEAN PLATELET VOLUME 9.2 fl (7.4-10.4); PLATELET COUNT 363 K/mm3 (130-400); RED BLOOD COUNT 4.52 M/mm3 (4.20-5.60); REDCELL DISTRIBUTION WIDTH-CV 14.5 % (11.5-14.5)
[2019-02-11 06:49] LABS: CALCIUM 8.7 mg/dL (8.4-10.2); CREATININE, serum 1.08 (0.66-1.25)
--- NOTE | 2019-02-11 07:07 | NUR ---
report from Zahra ATKINS.
--- NOTE | 2019-02-11 07:10 | NUR ---
Report given to MILLY Brewster
--- NOTE | 2019-02-11 07:29 | NUR ---
speech in to see patient. Reccomends mechanical soft and no straws for diet. Crush meds in apple sauce.
--- NOTE | 2019-02-11 08:09 | NUR ---
SPEECH IN TO SEE PATIENT THIS AM. COMPLETED SWALLOW STUDY. SEE NOTES FOR RECCOMENDATIONS. PT RESTING IN BED DENIES NEEDS.
[2019-02-11 08:13] VITALS: BP 135/58; PULSE 81; TEMP 98.5
[2019-02-11 08:41] LABS: BAND 2 % (0-10); LYMPHOCYTE 17 % (20.0-51.0); NEUTROPHILS 78 % (42.0-75.2)
[2019-02-11 08:42] LABS: PLATELET ESTIMATE NORMAL (NORMAL)
--- NOTE | 2019-02-11 10:42 | NUR ---
SW met with patient who is still agreeable to go to [place] for SN. Psych did deem patient unable to make his own medical/ placement decisions. Carlota called patients daughter who is agreeable to plan and will work with him to cancel his lease and move his stuff to [place]. CARLOTA called Damaris who will set up transport for tomorrow and call back with a time.
[2019-02-11 11:51] VITALS: BP 132/54; PULSE 81; TEMP 98.3
--- NOTE | 2019-02-11 12:10 | NUR ---
PICC intact right upper arm. With sterile technique right upper arm PICC dressing change done with insertion site cleansed with ChloraPrep 1, chlorhexidine impregnated disc applied, skin prep, StatLock, and Tegaderm applied. No signs or symptoms of IV complications noted. No concerns voiced. Arm wrapped with Rocco to protect catheter.
--- NOTE | 2019-02-11 14:27 | NUR ---
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
[2019-02-11 17:00] VITALS: BP 121/87; PULSE 87; TEMP 98.8
[2019-02-11 19:05] VITALS: BP 127/66; PULSE 80; TEMP 98.4
--- NOTE | 2019-02-11 20:00 | NUR ---
Report received. Assumed care for night stocker. Assessment complete. VS stable. PICC in right upper arm flushes without difficulty. Aquacell to right hip C/D/I. Fresh ice applied. Repositioned with pillows. Denies pain. Denies needs-states he is exhausted. HS pills given with applesauce. Tolerated well. Call light within reach. Bed in low positiom alarm on. Will monitor.
[2019-02-11 23:48] VITALS: BP 115/68; PULSE 87; TEMP 98
[2019-02-12 03:52] VITALS: BP 150/60; PULSE 76; TEMP 97.3
[2019-02-12 06:06] LABS: HEMATOCRIT 43.5 % (42.0-52.0); HEMOGLOBIN 14.8 g/dl (13.5-18.0); MEAN CELL VOLUME 96 fl (80.0-100.0); MEAN CORPUSCULAR HEMOGLOBIN 33 pg (27.0-31.0); MEAN CORPUSCULAR HGB CONC 34 g/dl (33.0-37.0); MEAN PLATELET VOLUME 9.1 fl (7.4-10.4); PLATELET COUNT 332 K/mm3 (130-400); RED BLOOD COUNT 4.54 M/mm3 (4.20-5.60); REDCELL DISTRIBUTION WIDTH-CV 14.5 % (11.5-14.5)
[2019-02-12 06:16] LABS: CALCIUM 8.8 mg/dL (8.4-10.2); CREATININE, serum 1.06 (0.66-1.25); POTASSIUM 4.1 mmol/L (3.4-5.0)
--- NOTE | 2019-02-12 07:00 | NUR ---
Repor from Zahra ATKINS.
[2019-02-12 07:44] LABS: BAND 3 % (0-10); EOSINOPHIL 1 % (0-4); LYMPHOCYTE 6 % (20.0-51.0); NEUTROPHILS 85 % (42.0-75.2)
[2019-02-12 07:45] LABS: PLATELET ESTIMATE NORMAL (NORMAL)
[2019-02-12 08:34] VITALS: BP 119/54; PULSE 85; TEMP 97.9
[2019-02-12] MEDS ORDERED: IPRATROPIUM BROM3 M1 IH ×2 (08:39)
[2019-02-12] MEDS ORDERED: VITAMIN C500 MG PO (08:43)
[2019-02-12] MEDS ORDERED: MELAT3MGTAB PO (08:43)
[2019-02-12] MEDS ORDERED: DULCOLAX S10 MG/SUPP RC (08:44)
[2019-02-12] MEDS ORDERED: MEDROL 4MG DOSPA4 MG PO (08:44)
[2019-02-12] MEDS ORDERED: NORCO 325 MG-51 TAB PO (08:54)
[2019-02-12] MEDS ORDERED: TYLENOL 500MG500 MG PO (08:54)
--- NOTE | 2019-02-12 09:40 | NUR ---
Patient is dc today to [facility] on [address] in [facility]. SW called patients daughter Uma to present IM and verbally discuss the contents. She was agreeable and gave verbal consent. ELO placed IM on chart. Discharge orders faxed to [facility] and transport is set to be here at 10.
--- NOTE | 2019-02-12 11:46 | NUR ---
REPORT CALLED TO AUGUST ATKINS VIA ANA CRISTINA TYLER. PT TRANSFERED TO TRANSPORTATION AFTER REMOVAL OF PICC LINE BY JACKY ATKINS.
== END 2019-02-12 10:45 | DRG 469 ==
LOC: MEDICAL 00:24 → SURG 01:04 → ICU 01:04 → SURG 11:38 → ICU 02-03 16:28 → SURG 02-09 17:32
PROVIDERS: Internal Medicine Pulmonary Disease; Nurse Practitioner; Nurse Practitioner Family; Orthopaedic Surgery; Physician Assistant; Student in an Organized Health Care Education/Training Program; ADMIT Internal Medicine
PROC: 02703ZZ Dilation of Coronary Artery, One Artery, Percutaneous Approach (ICD-10-PCS; 2019-02-03)
PROC: 4A023N7 Measurement of Cardiac Sampling and Pressure, Left Heart, Percutaneous Approach (ICD-10-PCS; 2019-02-03)
PROC: B2111ZZ Fluoroscopy of Multiple Coronary Arteries using Low Osmolar Contrast (ICD-10-PCS; 2019-02-03)
PROC: B2151ZZ Fluoroscopy of Left Heart using Low Osmolar Contrast (ICD-10-PCS; 2019-02-03)
PROC: 5A1955Z Respiratory Ventilation, Greater than 96 Consecutive Hours (ICD-10-PCS; 2019-02-04)
PROC: 0BH17EZ Insertion of Endotracheal Airway into Trachea, Via Natural or Artificial Opening (ICD-10-PCS; 2019-02-04)
PROC: 0SRR0J9 Replacement of Right Hip Joint, Femoral Surface with Synthetic Substitute, Cemented, Open Approach (ICD-10-PCS; principal; 2019-02-07 11:15)
DX: S72.001A Fracture of unspecified part of neck of right femur, initial encounter for closed fracture (principal); I50.33 Acute on chronic diastolic (congestive) heart failure; J96.01 Acute respiratory failure with hypoxia; E46 Unspecified protein-calorie malnutrition; I25.119 Atherosclerotic heart disease of native coronary artery with unspecified angina pectoris; W18.39XA Other fall on same level, initial encounter; Y93.E1 Activity, personal bathing and showering; Y92.031 Bathroom in apartment as the place of occurrence of the external cause; Z88.2 Allergy status to sulfonamides; Z88.8 Allergy status to other drugs, medicaments and biological substances; Z91.048 Other nonmedicinal substance allergy status; F17.200 Nicotine dependence, unspecified, uncomplicated; J44.9 Chronic obstructive pulmonary disease, unspecified; D50.9 Iron deficiency anemia, unspecified; G20 Parkinson's disease; K22.70 Barrett's esophagus without dysplasia; E03.9 Hypothyroidism, unspecified; N40.0 Benign prostatic hyperplasia without lower urinary tract symptoms; R94.39 Abnormal result of other cardiovascular function study; Z99.81 Dependence on supplemental oxygen; R45.1 Restlessness and agitation; I69.30 Unspecified sequelae of cerebral infarction; I73.9 Peripheral vascular disease, unspecified; R00.1 Bradycardia, unspecified; T41.295A Adverse effect of other general anesthetics, initial encounter
CPT/HCPCS: 99222-AI; 99231-AI; 99232-AI; 99233-AI; 99239; A9284; A9500; C1725; C1726; C1751; C1769; C1776; C1887; J0330; J0690; J1200; J1644; J1650; J1940; J1956; J2060; J2250; J2270; J2405; J2543; J2704; J2785; J2920; J3010; J3370; J7030; J7050; J7120; J7512; Q9967